=== PATIENT | male | born 1955 ===

== ENCOUNTER 2019-12-06 10:07 | Inpatient (IN) | payer OTHER ==
[~2019-12-06] VITALS: Ht 175.3 cm; Wt 93.0 kg
[2019-12-06] MEDS ORDERED: JANUMET XR 50-1 EAC1 PO (11:21)
[2019-12-06] MEDS ORDERED: LIPITOR20 MG PO (11:21)
[2019-12-23] MEDS ORDERED: INTESTINEX680 M1 PO (15:44)
[2019-12-23] MEDS ORDERED: PRILOSEC OTC20 MG PO (15:44)
[2019-12-23] MEDS ORDERED: PERCOCET 5-3251 EACH PO (15:44)
[2019-12-23] MEDS ORDERED: CIPRO500 MG PO (15:53)
== END 2019-12-23 16:42 | disposition home or self-care (01) | DRG 331 ==
LOC: SURH 12-20 05:00 → O/R 12-20 06:00 → SURH 12-20 10:04
PROVIDERS: ADMIT Surgery
PROC: 07BC4ZX Excision of Pelvis Lymphatic, Percutaneous Endoscopic Approach, Diagnostic (ICD-10-PCS; 2019-12-20)
PROC: 0DBK4ZZ Excision of Ascending Colon, Percutaneous Endoscopic Approach (ICD-10-PCS; principal; 2019-12-20 05:00)
DX: D12.2 Benign neoplasm of ascending colon (principal)

== ENCOUNTER 2019-12-19 06:00 | Day surgery (SDC) | payer OTHER ==
[~2019-12-19 06:00] MED LIST: JANUMET XR 50-1 EAC1 PO; LIPITOR20 MG PO
== END 2019-12-19 10:10 | disposition home or self-care (01) ==
LOC: AMB-ENDOS 06:00
DX: D12.2 Benign neoplasm of ascending colon (principal)

== ENCOUNTER 2020-12-21 10:19 | Outpatient (CLI) | payer OTHER ==
[~2020-12-21 10:19] MED LIST changes: +CIPRO500 MG PO; +INTESTINEX680 M1 PO; +PERCOCET 5-3251 EACH PO; +PRILOSEC OTC20 MG PO
== END 2020-12-21 10:27 | disposition home or self-care (01) ==
LOC: LAB 10:19
PROVIDERS: ATTEND Colon & Rectal Surgery
DX: Z03.818 Encounter for observation for suspected exposure to other biological agents ruled out (principal)

== ENCOUNTER 2020-12-24 06:26 | Day surgery (SDC) | payer OTHER | END 2020-12-24 10:35 | disposition home or self-care (01) | LOC: AMB-ENDOS 06:26 | PROVIDERS: ATTEND Surgery | DX: D12.3 Benign neoplasm of transverse colon (principal); Z20.828 Contact with and (suspected) exposure to other viral communicable diseases ==